=== PATIENT | male | born 1965 | race Caucasian/White ===

== ENCOUNTER 2020-07-09 09:10 | Day surgery (SDC) | payer MEDICAID ==
[~2020-07-09] VITALS: Ht 180.3 cm; Wt 102.1 kg
--- NOTE | ~2020-07-09 | OP ---
PATIENT NAME: TAI KIDD MEDICAL RECORD: [id number] :67 LOCATION:D.OPS ADMISSION DATE: SURGEON: REAGAN CHAMPION MD DATE OF OPERATION: 07/09/2020 PREOPERATIVE DIAGNOSIS: Olecranon bursitis of the right elbow. POSTOPERATIVE DIAGNOSIS: Olecranon bursitis of the right elbow. PROCEDURE: Excision of olecranon bursa of the right elbow. SURGEON: Reagan Champion MD ANESTHESIA: General. INTRAOPERATIVE COMPLICATIONS: None. SUMMARY OF PATHOLOGIC FINDINGS: The patient had a substantial olecranon bursal inflammation. Consistent with the preoperative diagnosis, it did not appear to be septic at all. OPERATIVE SUMMARY IN DETAIL: After obtaining the appropriate preoperative orthopedic surgery consent as well as anesthetic consultation, evaluation and clearance, the patient was brought to the operating room and placed on operating table in supine position. After adequate general laryngeal mask was administered, tourniquet was placed on the proximal aspect of the right upper extremity. Right upper extremity was then prepped and draped in routine sterile fashion. The arm was elevated and exsanguinated, tourniquet was inflated to 250 mmHg. At this point, appropriate timeout was taken and agreed upon by all given the patient unique identifiers. Incision was made directly over the olecranon, taken down to the olecranon. Dissection was carefully taken proximal, distal, medial and lateral. The olecranon was taken out en bloc without rupture. It was then passed off for permanent specimen. The wound was irrigated and closed with #2 Vicryl followed by 3-0 Prolene in interrupted fashion. Sterile dressings were applied. The patient was awakened and taken to recovery room in stable condition. All final needle and sponge counts were correct. TRANSINT:[id number] Voice Confirmation ID: [id number] DOCUMENT ID: [id number] REAGAN CHAMPION MD CC: [id number] DICTATION DATE: 07/09/20 1345 CERTIFIED TECHNICIAN SPECIALIST: 07/09/20 1643 [facility] 07/09/20 [id number] [place] [address]
[~2020-07-09 09:10] MED LIST: ALBUTEROL SULF8.5 GM INH; AMITRIPTYLINE100 MG PO; COREG25 MG PO; COZAAR100 MG PO; CYCLOBENZAPRINE10 MG PO; FLOMAX0.4 MG PO; FUROSEMIDE40 MG PO; HYDRALAZINE HCL50 MG PO; ISOSORBIDE MONO30 M1 PO; LIPITOR80 MG PO; MELOXICAM TAB 15M PO; NORVASC10 MG PO; PLAVIX75 MG PO; PROTONIX40 MG PO; SYMBICORT 16010.2 GM INH; ZOLOFT100 MG PO
[2020-07-09 09:25] LABS: HEMATOCRIT 45.3 % (42.0-54.0); HEMOGLOBIN 15.3 g/dL (13.5-17.5); MCH 31.2 pg (26.0-34.0); MCHC 33.8 g/dL (31.0-37.0); MCV 92.3 fL (80.0-100.0); MEAN PLATELET VOLUME 10.9 fL (7.4-10.4); RBC 4.91 10x6/uL (4.20-6.10); WBC 10.7 10x3/uL (4.8-10.8)
[2020-07-09 09:33] LABS: CALC OSMOLALITY 278 mosm/kg (275-300); CARBON DIOXIDE 26.3 mmol/L (21.0-32.0); CHLORIDE - SERUM 104 mmol/L (98-107); CREATININE - SERUM 0.9 mg/dL (0.6-1.3); GLUCOSE 113 mg/dL (74-106); POTASSIUM - SERUM 4.5 mmol/L (3.5-5.1); SODIUM 138 mmol/L (136-145); UREA NITROGEN 17 mg/dL (7-18); eGFR NON AFRICAN AMERICAN > 90 mL/min (90-120)
[2020-07-09 10:00] VITALS: BP 112/74; Ht 180.3 cm; Wt 102.1 kg
[2020-07-09] MEDS ORDERED: HYDROCODON-ACE1 EA10 PO (13:43)
== END 2020-07-09 15:45 | disposition home or self-care (01) ==
LOC: D.OPS 09:10 → D.PAN 11:15 → D.OPS 11:45
PROVIDERS: Anesthesiology; ATTEND Orthopaedic Surgery
DX: M70.21 Olecranon bursitis, right elbow (principal); M25.521 Pain in right elbow